=== PATIENT | male | born 1960 | race Caucasian/White ===

== ENCOUNTER → 2023-09-05 | Outpatient (CLI) | payer OTHER, SELFPAY ==
[2023-09-05 14:06] LABS: Synovial Fld Mononuclear WBC # 0.077 10^3/ul; Synovial Fld Mononuclear WBC % 68.1 %; Synovial Fld Polynuclear WBC # 0.036 10^3/uL; Synovial Fld Polynuclear WBC % 31.9 %
[2023-09-05 15:09] LABS: AUTO B FLUID DILUENT BKGD CT WBC <0.1 RBC <0.01 (W<.1,R<.01); Appearance /Synovial Fluid Clear (CLEAR); Color / Synovial Fluid Yellow (Pale Yellow); Lymph 52 %; Monocyte /Synovial Fluid 20 %; Neutrophil 20 % (0-25); Plasma Cell /Synovial Fluid 8 %; Source / Synovial Fluid RIGHT KNEE
[2023-09-05 15:10] LABS: Body Fluid QC Type(s) BF1Q
[2023-09-07 10:57] LABS: Pathologist Comment Reviewed
== END | disposition home or self-care (01) ==
PROVIDERS: PCP Family Medicine; Referring Provider Specialist; Visit Provider Specialist
DX: M25.461 Effusion, right knee (principal); Z96.651 Presence of right artificial knee joint
CPT/HCPCS: 36415; 87015; 87070; 87075; 87101; 87116; 87205; 87206; 89050; 89051